=== PATIENT | female | born 1945 | race African-American/Black ===

== ENCOUNTER 2022-01-05 17:13 | Emergency (ER) | payer OTHER ==
[2022-01-05 18:06] VITALS: BMI 32.9
[2022-01-05] MEDS ORDERED: ACETAMINOPHEN 325 MG TABLET (FP) PO ONE (18:10)
[2022-01-05] MEDS ORDERED: ACETAMINOPHEN 325 MG TABLET (FP) ONE (18:21)
[2022-01-05] MEDS ORDERED: ALBUTEROL SO4 2.5/IPRATROPIUM 0.5 INH SOL 3 ML VIAL.NEB. NEB ONE ×2 (18:35→19:19)
[2022-01-05] MEDS ORDERED: BEBTELOVIMAB (EUA) 175 MG/2 ML VIAL IVPUSH ONE (18:36)
[2022-01-06 02:07] VITALS: BP 157/74; PULSE 83; RESP 20; TEMP 99.1
== END 2022-01-06 03:10 | disposition home or self-care (01) ==
LOC: JER 17:13 → JERFT 17:13
PROC: 3E0F7GC Introduction of Other Therapeutic Substance into Respiratory Tract, Via Natural or Artificial Opening (ICD-10-PCS; principal; 2022-01-05)
DX: U07.1 COVID-19 (principal); J45.909 Unspecified asthma, uncomplicated
CPT/HCPCS: 71045-TC-FY; 93005; 93010; 99284-25; M0222; Q0222

== ENCOUNTER 2023-05-10 17:18 | Emergency (ER) | payer OTHER ==
[2023-05-10 17:34] VITALS: RESP 18; BMI 36.8
[2023-05-10] MEDS ORDERED: ACETAMINOPHEN 325 MG TABLET (FP) PO ONE (18:25)
[2023-05-10] MEDS ORDERED: ACETAMINOPHEN 325 MG TABLET (FP) ONE (18:27)
[2023-05-10 22:58] VITALS: BP 147/84; PULSE 64; TEMP 97.6
== END 2023-05-10 23:28 ==
LOC: JER 17:18
DX: M25.552 Pain in left hip (principal); R06.02 Shortness of breath; J45.909 Unspecified asthma, uncomplicated; W01.198A Fall on same level from slipping, tripping and stumbling with subsequent striking against other object, initial encounter; Y93.01 Activity, walking, marching and hiking; Y92.29 Other specified public building as the place of occurrence of the external cause
CPT/HCPCS: 70450-TC; 72125-TC; 72170-TC-FY; 73502-TC-LT-FY; 73552-TC-LT-FY; 99284-25

== ENCOUNTER 2023-07-28 10:14 | Inpatient (IN) | payer OTHER ==
[2023-07-28] MEDS ORDERED: ONDANSETRON 4 MG/2 ML VIAL ONE (11:12)
[2023-07-28] MEDS ORDERED: ACETAMINOPHEN INJECTION 100 ML IVPB ONE (11:12)
[2023-07-28] MEDS ORDERED: methylPREDNISolone NA SUCC 125 MG/2 ML VIAL ONE (11:13)
[2023-07-28 12:00] LABS: VENOUS BASE EXCESS 2.3 mmol/L (-2-2); VENOUS O2 SATURATION 77.5 % (70-80); VENOUS PH 7.331 (7.310-7.410)
[2023-07-28 12:03] LABS: BASO % 0.3 % (0-2.0); EOS % 5.6 % (0-4.5); HEMATOCRIT 37.6 % (32.4-45.2); LYMPH % 43.3 % (8-40); MCH 25.8 pg (25.7-33.7); MCHC 31.8 g/dl (32.0-36.0); MEAN CELL VOLUME 80.9 fl (80-96); MEAN PLT VOLUME 8.1 fl (7.5-11.1); MONO % 12.2 % (3.8-10.2); NEUT % 38.6 % (42.8-82.8); PLATELET COUNT 231 10^3/uL (134-434); RBC 4.65 M/mm3 (3.60-5.2); RDW 15.7 % (11.6-15.6); WHITE BLOOD COUNT 5.9 K/mm3 (4.0-10.0)
[2023-07-28 12:18] LABS: POTASSIUM 4.3 mmol/L (3.5-5.1)
[2023-07-28 12:19] LABS: INR 1.08 (0.83-1.09); PROTHROMBIN TIME (PATIENT) 12.5 SEC (9.7-13.0)
[2023-07-28 12:20] LABS: BLOOD UREA NITROGEN 9.1 mg/dL (7-18); MAGNESIUM 1.7 mg/dL (1.8-2.4)
[2023-07-28] MEDS: ONDANSETRON 4 MG/2 ML VIAL IVPUSH ONE (12:21)
[2023-07-28] MEDS: ACETAMINOPHEN 1000 MG/100 ML BAG IVPB ONE (12:21)
[2023-07-28] MEDS: methylPREDNISolone NA SUCC 125 MG/2 ML VIAL IVPUSH ONE (12:21)
[2023-07-28] MEDS: ALBUTEROL SO4 2.5/IPRATROPIUM 0.5 INH SOL 3 ML VIAL.NEB. NEB SCH ×2 (12:21→16:31)
[2023-07-28 12:22] LABS: ACTIVATED PTT 29.1 SECONDS (25.2-36.5)
[2023-07-28 12:23] LABS: CALCIUM 9.5 mg/dL (8.5-10.1); CREATININE 0.6 mg/dL (0.55-1.3); PHOSPHOROUS 3.4 mg/dL (2.5-4.9)
[2023-07-28 12:24] LABS: BILIRUBIN,TOTAL 0.3 mg/dL (0.2-1); TOT PROT 8.4 g/dl (6.4-8.2)
[2023-07-28 12:28] LABS: N-TERMINAL BNP 341.9 pg/ml (5-450)
[2023-07-28] MEDS ORDERED: MAGNESIUM 1GM/D5W - 1 GM/100 ML IVPB IVPB ONE (13:03)
[2023-07-28] MEDS: MAGNESIUM 1GM/D5W - 1 GM/100 ML IVPB IVPB ONE (13:15)
[2023-07-28 16:21] LABS: URINE APPEARANCE CLEAR; URINE BILIRUBIN NEGATIVE (NEGATIVE); URINE COLOR YELLOW; URINE GLUCOSE (UA) NEGATIVE (NEGATIVE); URINE KETONE NEGATIVE (NEGATIVE); URINE LEUK ESTERASE NEGATIVE (NEGATIVE); URINE NITRITE NEGATIVE (NEGATIVE); URINE PROTEIN NEGATIVE (NEGATIVE); URINE UROBILINOGEN 0.2 mg/dL (0.2-1.0)
[2023-07-28] MEDS ORDERED: ALBUTEROL SO4 2.5/IPRATROPIUM 0.5 INH SOL 3 ML VIAL.NEB. NEB ONE (16:29)
[2023-07-28] MEDS: INSULIN ASPART SLIDING SCALE (NOVOLOG) 1 VIAL SQ SCH (17:30)
[2023-07-28] MEDS ORDERED: ATORVASTATIN CA 10 MG TABLET (FP) ONE (23:13)
[2023-07-28] MEDS ORDERED: methylPREDNISolone NA SUCC 40 MG/1 ML VIAL ONE (23:14)
[2023-07-29] MEDS: ATORVASTATIN CA 10 MG TABLET (FP) PO SCH (02:16)
[2023-07-29] MEDS: methylPREDNISolone NA SUCC 40 MG/1 ML VIAL IVPUSH SCH ×2 (02:16→18:07)
[2023-07-29] MEDS ORDERED: ALBUTEROL SO4 2.5/IPRATROPIUM 0.5 INH SOL 3 ML VIAL.NEB. NEB ONE ×3 (02:18→21:06)
[2023-07-29 07:21] LABS: BASO % 0.3 % (0-2.0); HEMATOCRIT 38.6 % (32.4-45.2); HEMOGLOBIN 12.5 GM/dL (10.7-15.3); LYMPH % 23.2 % (8-40); MCHC 32.4 g/dl (32.0-36.0); MEAN CELL VOLUME 80.3 fl (80-96); MEAN PLT VOLUME 7.8 fl (7.5-11.1); MONO % 2.7 % (3.8-10.2); NEUT % 73.8 % (42.8-82.8); PLATELET COUNT 240 10^3/uL (134-434); RBC 4.81 M/mm3 (3.60-5.2); RDW 15.2 % (11.6-15.6); WHITE BLOOD COUNT 8.4 K/mm3 (4.0-10.0)
[2023-07-29 07:34] LABS: INR 1.17 (0.83-1.09); PROTHROMBIN TIME (PATIENT) 13.5 SEC (9.7-13.0)
[2023-07-29 07:41] LABS: POTASSIUM 4.1 mmol/L (3.5-5.1)
[2023-07-29 07:44] LABS: CALCIUM 9.3 mg/dL (8.5-10.1)
[2023-07-29 07:45] LABS: BLOOD UREA NITROGEN 15.8 mg/dL (7-18); MAGNESIUM 1.9 mg/dL (1.8-2.4)
[2023-07-29 07:48] LABS: CREATININE 0.5 mg/dL (0.55-1.3); PHOSPHOROUS 3.1 mg/dL (2.5-4.9)
[2023-07-29 07:49] LABS: BILIRUBIN,TOTAL 0.3 mg/dL (0.2-1); TOT PROT 8.1 g/dl (6.4-8.2)
[2023-07-29] MEDS: ENOXAPARIN NA (PORCINE) 40 MG/0.4 ML DISP.SYRIN SQ SCH (09:37)
[2023-07-29] MEDS: LISINOPRIL 20 MG TABLET PO SCH (09:37)
[2023-07-29] MEDS: HYDROCHLOROTHIAZIDE 12.5 MG CAPSULE (FP) PO SCH (09:37)
[2023-07-29] MEDS: amLODIPine BESYLATE 5 MG TABLET (FP) PO SCH (09:37)
[2023-07-29] MEDS ORDERED: DICLOFENAC SODIUM 2 GM TP SCH (10:00)
[2023-07-29] MEDS ORDERED: methylPREDNISolone NA SUCC 40 MG/1 ML VIAL IVPUSH SCH (10:00)
[2023-07-29] MEDS ORDERED: guaiFENesin/D-METHORPHAN HB 10 ML UNIT-DOSE CUPS ONE (13:41)
[2023-07-29] MEDS ORDERED: GABAPENTIN 100 MG CAPSULE ONE ×2 (13:42→22:32)
[2023-07-29] MEDS: GABAPENTIN 100 MG CAPSULE PO SCH (14:05)
[2023-07-29] MEDS: guaiFENesin 200 MG/10 ML 10 ML UNIT-DOSE CUPS PO PRN (14:06)
[2023-07-29] MEDS ORDERED: ALBUTEROL SO4 0.083% IH SOL 2.5 MG/3 ML VIAL.NEB. NEB PRN (15:22)
[2023-07-29] MEDS: ASPIRIN 81 MG CHEWABLE TABLETS PO SCH (17:25)
[2023-07-29] MEDS: ASCORBIC ACID 500 MG TABLET (FP) PO SCH (17:25)
[2023-07-29] MEDS: ACETAMINOPHEN 500 MG TABLET (FP) PO SCH (17:25)
[2023-07-29] MEDS: traMADol HCL 50 MG TABLET PO SCH ×2 (17:25→21:18)
[2023-07-29] MEDS: METOPROLOL TARTRATE 50 MG TABLET (FP) PO SCH (17:25)
[2023-07-29] MEDS: FAMOTIDINE 20 MG TABLET PO SCH (17:25)
[2023-07-29] MEDS ORDERED: methylPREDNISolone NA SUCC 40 MG/1 ML VIAL ONE (17:32)
[2023-07-29] MEDS ORDERED: traMADol HCL 50 MG TABLET ONE (21:02)
[2023-07-29] MEDS ORDERED: ACETAMINOPHEN 325 MG TABLET (FP) ONE (21:02)
[2023-07-29] MEDS ORDERED: guaiFENesin/CODEINE 10 ML UNIT-DOSE CUPS ONE (21:14)
[2023-07-29] MEDS ORDERED: LIDOCAINE 4% PATCH TP ONE (21:14)
[2023-07-29] MEDS: LIDOCAINE 4% PATCH TP SCH (21:16)
[2023-07-29] MEDS: LIDOCAINE PATCH REMOVAL MC SCH (22:11)
[2023-07-29] MEDS ORDERED: ATORVASTATIN CA 10 MG TABLET (FP) ONE (22:32)
[2023-07-30] MEDS ORDERED: methylPREDNISolone NA SUCC 40 MG/1 ML VIAL ONE (01:33)
[2023-07-30] MEDS ORDERED: GABAPENTIN 100 MG CAPSULE ONE (05:49)
[2023-07-30] MEDS: HALOPERIDOL LACTATE 5 MG/ML IM ONE (06:50)
[2023-07-30] MEDS: sitaGLIPtin PHOSPHATE 50 MG TABLET PO SCH (09:23)
[2023-07-30 11:09] LABS: POTASSIUM 3.8 mmol/L (3.5-5.1)
[2023-07-30 11:11] LABS: CALCIUM 9.7 mg/dL (8.5-10.1)
[2023-07-30] MEDS ORDERED: LIDOCAINE 4% PATCH TP ONE (11:11)
[2023-07-30 11:12] LABS: ALBUMIN 3.7 g/dl (3.4-5.0); BLOOD UREA NITROGEN 23.6 mg/dL (7-18)
[2023-07-30] MEDS ORDERED: QUEtiapine FUMARATE 25 MG TABLET ONE (11:12)
[2023-07-30 11:15] LABS: CREATININE 0.6 mg/dL (0.55-1.3)
[2023-07-30 11:16] LABS: BILIRUBIN,TOTAL 0.3 mg/dL (0.2-1); TOT PROT 7.9 g/dl (6.4-8.2)
[2023-07-30] MEDS: QUEtiapine FUMARATE 25 MG TABLET PO SCH (11:32)
[2023-07-30 11:38] LABS: BASO % 0.4 % (0-2.0); HEMATOCRIT 39.3 % (32.4-45.2); HEMOGLOBIN 12.5 GM/dL (10.7-15.3); LYMPH % 19.4 % (8-40); MCH 25.6 pg (25.7-33.7); MCHC 31.7 g/dl (32.0-36.0); MEAN CELL VOLUME 80.8 fl (80-96); MEAN PLT VOLUME 8.5 fl (7.5-11.1); MONO % 6.9 % (3.8-10.2); NEUT % 73.3 % (42.8-82.8); PLATELET COUNT 277 10^3/uL (134-434); RBC 4.86 M/mm3 (3.60-5.2); RDW 14.8 % (11.6-15.6); WHITE BLOOD COUNT 13.7 K/mm3 (4.0-10.0)
[2023-07-30] MEDS ORDERED: traMADol HCL 50 MG TABLET ONE (13:43)
[2023-07-30] MEDS ORDERED: ALBUTEROL SO4 2.5/IPRATROPIUM 0.5 INH SOL 3 ML VIAL.NEB. NEB ONE ×3 (13:56→20:15)
[2023-07-30] MEDS ORDERED: ACETAMINOPHEN 325 MG TABLET (FP) ONE (20:15)
[2023-07-30] MEDS ORDERED: guaiFENesin/CODEINE 10 ML UNIT-DOSE CUPS ONE (22:18)
[2023-07-30] MEDS: GABAPENTIN 100 MG CAPSULE PO SCH (22:20)
[2023-07-31] MEDS ORDERED: methylPREDNISolone NA SUCC 40 MG/1 ML VIAL ONE (02:02)
[2023-07-31] MEDS: amLODIPine BESYLATE 5 MG TABLET (FP) PO ONE (02:09)
[2023-07-31 08:04] LABS: BASO % 0.1 % (0-2.0); HEMATOCRIT 37.9 % (32.4-45.2); HEMOGLOBIN 12.5 GM/dL (10.7-15.3); LYMPH % 13.1 % (8-40); MCH 26.2 pg (25.7-33.7); MCHC 33.1 g/dl (32.0-36.0); MEAN CELL VOLUME 79.2 fl (80-96); MEAN PLT VOLUME 8.2 fl (7.5-11.1); MONO % 4.6 % (3.8-10.2); NEUT % 82.2 % (42.8-82.8); PLATELET COUNT 283 10^3/uL (134-434); RBC 4.78 M/mm3 (3.60-5.2); RDW 15.3 % (11.6-15.6); WHITE BLOOD COUNT 12.5 K/mm3 (4.0-10.0)
[2023-07-31 08:14] LABS: POTASSIUM 3.9 mmol/L (3.5-5.1)
[2023-07-31 08:17] LABS: BLOOD UREA NITROGEN 23.8 mg/dL (7-18); CALCIUM 9.7 mg/dL (8.5-10.1)
[2023-07-31 08:21] LABS: CREATININE 0.7 mg/dL (0.55-1.3)
[2023-07-31] MEDS ORDERED: ALBUTEROL SO4 2.5/IPRATROPIUM 0.5 INH SOL 3 ML VIAL.NEB. NEB ONE ×3 (09:46→16:56)
[2023-07-31] MEDS ORDERED: LIDOCAINE 4% PATCH TP ONE (09:46)
[2023-07-31] MEDS ORDERED: INSULIN (NOVOLOG) ASPART 100 UNITS/ML 10ML VIAL ONE (12:30)
[2023-07-31] MEDS ORDERED: guaiFENesin/D-METHORPHAN HB 10 ML UNIT-DOSE CUPS ONE (12:32)
[2023-08-01] MEDS ORDERED: ALBUTEROL SO4 2.5/IPRATROPIUM 0.5 INH SOL 3 ML VIAL.NEB. NEB ONE ×3 (00:49→12:05)
[2023-08-01] MEDS ORDERED: ATORVASTATIN CA 10 MG TABLET (FP) ONE (00:50)
[2023-08-01] MEDS ORDERED: ACETAMINOPHEN 500 MG TABLET (FP) ONE (00:50)
[2023-08-01] MEDS ORDERED: GABAPENTIN 100 MG CAPSULE ONE ×2 (00:50→06:17)
[2023-08-01] MEDS ORDERED: methylPREDNISolone NA SUCC 40 MG/1 ML VIAL ONE (02:23)
[2023-08-01] MEDS ORDERED: sitaGLIPtin PHOSPHATE 50 MG TABLET ONE (06:17)
[2023-08-01] MEDS: predniSONE 10 MG TABLET (UD) PO SCH (11:13)
[2023-08-01 17:06] VITALS: BMI 32.6
[2023-08-01] MEDS ORDERED: INSULIN (NOVOLOG) ASPART 100 UNITS/ML 10ML VIAL ONE ×2 (18:06→22:33)
[2023-08-02 10:13] LABS: HEMATOCRIT 36.7 % (32.4-45.2); HEMOGLOBIN 11.9 GM/dL (10.7-15.3); MCH 25.9 pg (25.7-33.7); MCHC 32.5 g/dl (32.0-36.0); MEAN CELL VOLUME 79.7 fl (80-96); MEAN PLT VOLUME 8.3 fl (7.5-11.1); PLATELET COUNT 281 10^3/uL (134-434); RDW 15.3 % (11.6-15.6); WHITE BLOOD COUNT 10.8 K/mm3 (4.0-10.0)
[2023-08-02 10:27] LABS: POTASSIUM 3.8 mmol/L (3.5-5.1)
[2023-08-02 10:30] LABS: BLOOD UREA NITROGEN 19.7 mg/dL (7-18); CALCIUM 8.9 mg/dL (8.5-10.1)
[2023-08-02 10:33] LABS: CREATININE 0.7 mg/dL (0.55-1.3)
[2023-08-02 10:35] LABS: BILIRUBIN,TOTAL 0.4 mg/dL (0.2-1); TOT PROT 6.4 g/dl (6.4-8.2)
[2023-08-02 10:42] LABS: ANISOCYTOSIS 0; MACROCYTOSIS 0
[2023-08-03] MEDS ORDERED: INSULIN (NOVOLOG) ASPART 100 UNITS/ML 10ML VIAL ONE (11:35)
[2023-08-04] MEDS: predniSONE 20 MG TABLET (UD) PO SCH (09:36)
[2023-08-04] MEDS ORDERED: ALBUTEROL SO4 2.5/IPRATROPIUM 0.5 INH SOL 3 ML VIAL.NEB. NEB PRN (10:08)
[2023-08-04 11:15] LABS: BASO % 0.2 % (0-2.0); EOS % 2.4 % (0-4.5); HEMATOCRIT 38.4 % (32.4-45.2); HEMOGLOBIN 12.2 GM/dL (10.7-15.3); LYMPH % 26.9 % (8-40); MCH 25.5 pg (25.7-33.7); MCHC 31.7 g/dl (32.0-36.0); MEAN CELL VOLUME 80.7 fl (80-96); MEAN PLT VOLUME 7.9 fl (7.5-11.1); MONO % 8.7 % (3.8-10.2); NEUT % 61.8 % (42.8-82.8); PLATELET COUNT 298 10^3/uL (134-434); RBC 4.76 M/mm3 (3.60-5.2); RDW 15.6 % (11.6-15.6); WHITE BLOOD COUNT 11.1 K/mm3 (4.0-10.0)
[2023-08-04 14:59] VITALS: BP 131/67; PULSE 77; RESP 18; TEMP 98.4
== END 2023-08-04 17:32 | DRG 203 ==
LOC: JER 10:14 → JERBED 12:56 → OBSVTOIN 13:17 → J8W 08-01 15:23
PROVIDERS: ADMIT Internal Medicine; ATTEND Internal Medicine
DX: J45.901 Unspecified asthma with (acute) exacerbation (principal); K21.9 Gastro-esophageal reflux disease without esophagitis; E78.00 Pure hypercholesterolemia, unspecified; E11.9 Type 2 diabetes mellitus without complications; B97.4 Respiratory syncytial virus as the cause of diseases classified elsewhere; H40.9 Unspecified glaucoma; M25.552 Pain in left hip; R41.0 Disorientation, unspecified
CPT/HCPCS: 0241U-QW; 36415; 71045-TC-FY; 80048; 80053; 81003; 82803; 82962; 83036; 83735; 83880; 84100; 84484; 85025; 85610; 85730; 87807; 87899; 93005; 93010; 94010; 94640; 94761; 97116-GP; 97162-GP; 99285-25; G0378; J0131